=== PATIENT | male | born 1995 | race Caucasian/White ===

== ENCOUNTER 2025-09-09 21:01 | Emergency (ER) | payer OTHER ==
[~2025-09-09] VITALS: Ht 180.3 cm; Wt 85.0 kg
[2025-09-10] MEDS ORDERED: methylPREDNISolone 4 MG HOME.PACK PO ONE ×2 (00:28→00:30)
[2025-09-10 00:38] VITALS: BP 124/81
== END 2025-09-10 00:40 | disposition home or self-care (01) ==
LOC: ED 21:01
DX: J02.9 Acute pharyngitis, unspecified (principal); Z91.030 Bee allergy status
CPT/HCPCS: 87651; 99283